=== PATIENT | male | born 1945 | race Caucasian/White ===

== ENCOUNTER 2022-05-08 01:43 | Inpatient (IN) | payer MEDICARE, OTHER ==
[2022-05-08] VITALS (75 sets, daily range): BP systolic 62–247; BP diastolic 44–224
[~2022-05-08] VITALS: Ht 172.7 cm; Wt 83.0 kg
[2022-05-08] MEDS ORDERED: [UNRECOGNIZED DRUG - OTHER] (02:10)
[2022-05-08] MEDS ORDERED: GLIPIZIDE ER5 MG PO (02:12)
[2022-05-08] MEDS ORDERED: FOLIC ACID1 MG PO (02:12)
[2022-05-08] MEDS ORDERED: METFORMIN HCL1000 MG PO (02:13)
[2022-05-08] MEDS ORDERED: ZOCOR10 MG PO (02:13)
[2022-05-08] MEDS ORDERED: PROVENTIL HFA108 MCG (02:14)
[2022-05-08] MEDS ORDERED: BREO ELLIPTA1 INH (02:14)
[2022-05-08] MEDS ORDERED: IPRATROPIUM BROMIDE IN (02:15)
[2022-05-08 02:21] LABS: BASO% 0.1 % (0-3); HEMATOCRIT 45.7 % (39.0-50.0); HEMOGLOBIN 13.4 g/dl (14.0-18.0); IMMATURE GRANULOCYTES 2.8 % (0.0-5.0); LYMPH% 3.4 % (15-41); MEAN CELL VOLUME 114.5 fL CALC (80.0-100.0); MEAN CORPUSCULAR HGB 33.6 pG CALC (26.0-32.0); MEAN CORPUSCULAR HGB CONC 29.3 g/dL CAL (32.0-36.0); MONO% 3.5 % (2-13); NEUT# 19.27 thou/uL (1.82-7.42); NEUT% 90.2 % (42-76); RED BLOOD COUNT 3.99 mill/uL (4.70-6.10); RED CELL DISTRI WIDTH 13.8 % (11.5-15.5)
[2022-05-08 02:33] LABS: INTERNATIONAL NORMALIZED RATIO 1.1 RATIO (0.7-1.3); PROTHROMBIN TIME 10.8 SECONDS (9.0-12.5)
[2022-05-08 02:34] LABS: ALBUMIN 3.9 g/dL (3.2-5.0); ALKALINE PHOSPHATASE 100 u/l (38-126); ANION GAP 7 (6-22 (CALC)); BILIRUBIN, TOTAL 0.5 mg/dL (0.0-1.4); BUN 20 mg/dL (8-23); BUN/CREATININE RATIO 20 (12-20 (CALC)); CARBON DIOXIDE 38 mmol/l (22-30); CHLORIDE 99 mmol/l (95-108); GFR FOR AFR.AMER. > 60 ML/MIN (>=60 (CALC)); GFR OTHER RACES > 60 ML/MIN (>=60 (CALC)); POTASSIUM 5.1 mmol/l (3.5-5.1); SGOT/AST 22 u/l (19-48); SODIUM 139 mmol/l (137-146); TOTAL PROTEIN 7.9 g/dL (6.3-8.2)
[2022-05-09] VITALS (24 sets, daily range): BP systolic 91–282; BP diastolic 47–228
[2022-05-09 04:04] LABS: HEMATOCRIT 44.8 % (39.0-50.0); HEMOGLOBIN 13.1 g/dl (14.0-18.0); MEAN CELL VOLUME 115.8 fL CALC (80.0-100.0); MEAN CORPUSCULAR HGB 33.9 pG CALC (26.0-32.0); MEAN CORPUSCULAR HGB CONC 29.2 g/dL CAL (32.0-36.0); RED BLOOD COUNT 3.87 mill/uL (4.70-6.10); RED CELL DISTRI WIDTH 13.5 % (11.5-15.5)
[2022-05-09 04:19] LABS: ALBUMIN 3.7 g/dL (3.2-5.0); CREATININE 1.5 mg/dL (0.7-1.3); MAGNESIUM 3.1 mg/dL (1.6-2.3); TOTAL PROTEIN 7.6 g/dL (6.3-8.2)
[2022-05-09 04:20] LABS: BILIRUBIN, TOTAL 0.2 mg/dL (0.0-1.4); POTASSIUM 5.9 mmol/l (3.5-5.1)
[2022-05-10] VITALS (13 sets, daily range): BP systolic 99–156; BP diastolic 52–119
[2022-05-10 05:29] LABS: HEMOGLOBIN 11.4 g/dl (14.0-18.0); MEAN CELL VOLUME 113.5 fL CALC (80.0-100.0); MEAN CORPUSCULAR HGB 33.4 pG CALC (26.0-32.0); MEAN CORPUSCULAR HGB CONC 29.5 g/dL CAL (32.0-36.0); RED BLOOD COUNT 3.41 mill/uL (4.70-6.10); RED CELL DISTRI WIDTH 13.7 % (11.5-15.5)
[2022-05-10 05:45] LABS: HEMATOCRIT 38.7 % (39.0-50.0)
[2022-05-10 05:53] LABS: ALBUMIN 3.3 g/dL (3.2-5.0); ALKALINE PHOSPHATASE 79 u/l (38-126); BUN 50 mg/dL (8-23); BUN/CREATININE RATIO 41 (12-20 (CALC)); CHLORIDE 100 mmol/l (95-108); CREATININE 1.2 mg/dL (0.7-1.3); GFR FOR AFR.AMER. > 60 ML/MIN (>=60 (CALC)); GFR OTHER RACES 59 ML/MIN (>=60 (CALC)); POTASSIUM 4.8 mmol/l (3.5-5.1); SGOT/AST 22 u/l (19-48); SODIUM 140 mmol/l (137-146); TOTAL PROTEIN 6.7 g/dL (6.3-8.2)
[2022-05-10 06:00] LABS: ANION GAP 4 (6-22 (CALC)); CARBON DIOXIDE 41 mmol/l (22-30)
[2022-05-11 00:29] VITALS: BP 124/66
[2022-05-11 04:20] VITALS: BP 125/70
[2022-05-11 05:43] LABS: HEMATOCRIT 39.4 % (39.0-50.0); HEMOGLOBIN 11.4 g/dl (14.0-18.0); MEAN CELL VOLUME 115.2 fL CALC (80.0-100.0); MEAN CORPUSCULAR HGB 33.3 pG CALC (26.0-32.0); MEAN CORPUSCULAR HGB CONC 28.9 g/dL CAL (32.0-36.0); RED BLOOD COUNT 3.42 mill/uL (4.70-6.10); RED CELL DISTRI WIDTH 13.6 % (11.5-15.5)
[2022-05-11 06:02] LABS: ALBUMIN 3.3 g/dL (3.2-5.0); ALKALINE PHOSPHATASE 86 u/l (38-126); BUN 46 mg/dL (8-23); BUN/CREATININE RATIO 40 (12-20 (CALC)); CHLORIDE 99 mmol/l (95-108); CREATININE 1.1 mg/dL (0.7-1.3); GFR FOR AFR.AMER. > 60 ML/MIN (>=60 (CALC)); GFR OTHER RACES > 60 ML/MIN (>=60 (CALC)); MAGNESIUM 2.9 mg/dL (1.6-2.3); POTASSIUM 4.9 mmol/l (3.5-5.1); SGOT/AST 22 u/l (19-48); SODIUM 141 mmol/l (137-146); TOTAL PROTEIN 6.6 g/dL (6.3-8.2)
[2022-05-11 06:12] LABS: ANION GAP 3 (6-22 (CALC)); BILIRUBIN, TOTAL 0.1 mg/dL (0.0-1.4); CARBON DIOXIDE 44 mmol/l (22-30)
[2022-05-11 06:29] VITALS: BP 127/71
[2022-05-11] MEDS ORDERED: PREDNISONE10 MG PO (09:58)
[2022-05-11] MEDS ORDERED: LEVAQUIN750 M1 PO (09:59)
[2022-05-11 10:18] VITALS: BP 123/71
[2022-05-11 10:40] VITALS: BP 123/71
== END 2022-05-11 12:45 | disposition home health service (06) | DRG 190 ==
LOC: ED 01:43 → ED-I 02:20 → ED 02:20 → ED-I 03:29 → ED 04:14 → ICU 04:15 → MS2 05-10 10:27
PROVIDERS: Internal Medicine; ADMIT Internal Medicine; ATTEND Internal Medicine
PROC: 5A09457 Assistance with Respiratory Ventilation, 24-96 Consecutive Hours, Continuous Positive Airway Pressure (ICD-10-PCS; principal; 2022-05-08)
DX: J44.1 Chronic obstructive pulmonary disease with (acute) exacerbation (principal); J18.9 Pneumonia, unspecified organism; J96.21 Acute and chronic respiratory failure with hypoxia; J96.22 Acute and chronic respiratory failure with hypercapnia; J44.0 Chronic obstructive pulmonary disease with (acute) lower respiratory infection; E87.5 Hyperkalemia; E11.9 Type 2 diabetes mellitus without complications; F17.200 Nicotine dependence, unspecified, uncomplicated; Z79.84 Long term (current) use of oral hypoglycemic drugs; Z99.81 Dependence on supplemental oxygen; Z85.118 Personal history of other malignant neoplasm of bronchus and lung; Z92.3 Personal history of irradiation; Z92.21 Personal history of antineoplastic chemotherapy; Z20.822 Contact with and (suspected) exposure to COVID-19
CPT/HCPCS: J1650; J3475

== ENCOUNTER 2022-05-12 15:59 | Observation (INO) | payer MEDICARE, OTHER ==
[~2022-05-12] VITALS: Ht 172.7 cm; Wt 79.8 kg
[~2022-05-12 15:59] MED LIST: BREO ELLIPTA1 INH; FOLIC ACID1 MG PO; GLIPIZIDE ER5 MG PO; IPRATROPIUM BROMIDE IN; LEVAQUIN750 M1 PO; METFORMIN HCL1000 MG PO; PREDNISONE10 MG PO; PROVENTIL HFA108 MCG; ZOCOR10 MG PO; [UNRECOGNIZED DRUG - OTHER]
[2022-05-12 16:36] LABS: BASO% 0.1 % (0-3); HEMATOCRIT 39.1 % (39.0-50.0); HEMOGLOBIN 11.4 g/dl (14.0-18.0); IMMATURE GRANULOCYTES 0.3 % (0.0-5.0); LYMPH% 2.4 % (15-41); MEAN CELL VOLUME 112.4 fL CALC (80.0-100.0); MEAN CORPUSCULAR HGB 32.8 pG CALC (26.0-32.0); MEAN CORPUSCULAR HGB CONC 29.2 g/dL CAL (32.0-36.0); MONO% 3.1 % (2-13); NEUT# 11.45 thou/uL (1.82-7.42); NEUT% 94.1 % (42-76); RED BLOOD COUNT 3.48 mill/uL (4.70-6.10); RED CELL DISTRI WIDTH 13.3 % (11.5-15.5)
[2022-05-12 16:52] LABS: ALBUMIN 3.3 g/dL (3.2-5.0); ALKALINE PHOSPHATASE 68 u/l (38-126); BUN 33 mg/dL (8-23); BUN/CREATININE RATIO 35 (12-20 (CALC)); CHLORIDE 98 mmol/l (95-108); CREATININE 0.9 mg/dL (0.7-1.3); GFR FOR AFR.AMER. > 60 ML/MIN (>=60 (CALC)); GFR OTHER RACES > 60 ML/MIN (>=60 (CALC)); POTASSIUM 4.2 mmol/l (3.5-5.1); SGOT/AST 26 u/l (19-48); SODIUM 139 mmol/l (137-146); TOTAL PROTEIN 6.6 g/dL (6.3-8.2)
[2022-05-12 17:13] LABS: ANION GAP 0 (6-22 (CALC)); BILIRUBIN, TOTAL 0.3 mg/dL (0.2-1.3); CARBON DIOXIDE 45 mmol/l (22-30)
[2022-05-12 19:52] VITALS: BP 127/69
[2022-05-12 19:55] VITALS: BP 127/69
[2022-05-12 23:36] VITALS: BP 135/65
[2022-05-13] VITALS: BP 135/65
[2022-05-13 04:00] VITALS: BP 129/78
[2022-05-13 04:47] LABS: ALKALINE PHOSPHATASE 70 u/l (38-126); BUN 29 mg/dL (8-23); BUN/CREATININE RATIO 30 (12-20 (CALC)); CHLORIDE 96 mmol/l (95-108); GFR FOR AFR.AMER. > 60 ML/MIN (>=60 (CALC)); GFR OTHER RACES > 60 ML/MIN (>=60 (CALC)); MAGNESIUM 2.3 mg/dL (1.6-2.3); SGOT/AST 24 u/l (19-48); SODIUM 137 mmol/l (137-146)
[2022-05-13 04:59] LABS: ANION GAP 0 (6-22 (CALC)); BILIRUBIN, TOTAL 0.5 mg/dL (0.2-1.3); CARBON DIOXIDE 46 mmol/l (22-30); POTASSIUM 5.1 mmol/l (3.5-5.1)
[2022-05-13 05:12] VITALS: BP 129/78
[2022-05-13 06:30] VITALS: BP 134/76
[2022-05-13 10:58] VITALS: BP 96/64
== END 2022-05-13 12:51 | disposition home health service (06) ==
LOC: ED 15:59 → ED-I 18:00 → ED 18:11 → MS2 18:12
PROVIDERS: Emergency Medicine; ADMIT Internal Medicine; ATTEND Internal Medicine
DX: J96.21 Acute and chronic respiratory failure with hypoxia (principal); J96.22 Acute and chronic respiratory failure with hypercapnia; J44.1 Chronic obstructive pulmonary disease with (acute) exacerbation; E11.649 Type 2 diabetes mellitus with hypoglycemia without coma; E78.00 Pure hypercholesterolemia, unspecified; F17.200 Nicotine dependence, unspecified, uncomplicated; T41.5X6A Underdosing of therapeutic gases, initial encounter; Z91.138 Patient's unintentional underdosing of medication regimen for other reason; Z99.81 Dependence on supplemental oxygen; Z79.84 Long term (current) use of oral hypoglycemic drugs
CPT/HCPCS: J1650

== ENCOUNTER 2022-08-19 07:43 | Emergency (ER) | payer MEDICARE, OTHER ==
[2022-08-19] VITALS (92 sets, daily range): BP systolic 70–142; BP diastolic 36–80
[~2022-08-19] VITALS: Ht 172.7 cm; Wt 75.7 kg
[2022-08-19 08:09] LABS: HEMATOCRIT 41.5 % (39.0-50.0); HEMOGLOBIN 12.1 g/dl (14.0-18.0); IMMATURE GRANULOCYTES 4.3 % (0.0-5.0); MEAN CELL VOLUME 114.3 fL CALC (80.0-100.0); MEAN CORPUSCULAR HGB 33.3 pG CALC (26.0-32.0); MEAN CORPUSCULAR HGB CONC 29.2 g/dL CAL (32.0-36.0); PLATELET COUNT 167 thou/uL (130-400); RED BLOOD COUNT 3.63 mill/uL (4.70-6.10); RED CELL DISTRI WIDTH 13.5 % (11.5-15.5)
[2022-08-19 08:34] LABS: URINE BILIRUBIN - DIPSTICK NEGATIVE (NEGATIVE); URINE BLOOD DIPSTICK NEGATIVE (NEGATIVE); URINE COLOR YELLOW; URINE GLUCOSE - DIPSTICK NEGATIVE (NEGATIVE); URINE KETONE NEGATIVE (NEGATIVE); URINE LEUK ESTERASE NEGATIVE (NEGATIVE); URINE PH 5.5 (4.5-8.0); URINE PROTEIN - DIPSTICK 100 mg/dL (NEG-TRACE); URINE SPECIFIC GRAVITY >=1.030; URINE UROBILINOGEN - DIPSTICK 0.2 E.U./dL (0.2)
[2022-08-19 08:35] LABS: BAND 5 % (0-8)
[2022-08-19 08:36] LABS: MANUAL DIFFERENTIAL YES
[2022-08-19 08:38] LABS: URINE NITRITE - DIPSTICK NEGATIVE (Negative)
[2022-08-19 08:39] LABS: URINE RBC 0-2 RBC/hpf (0-5); URINE WBC 0-2 WBC/hpf (0-5)
[2022-08-19 09:21] LABS: ALBUMIN 3.3 g/dL (3.2-5.0); ALKALINE PHOSPHATASE 96 u/l (38-126); BILIRUBIN, TOTAL 0.6 mg/dL (0.2-1.3); BUN 18 mg/dL (8-23); BUN/CREATININE RATIO 14 (12-20 (CALC)); CHLORIDE 104 mmol/l (95-108); CREATININE 1.3 mg/dL (0.7-1.3); GFR FOR AFR.AMER. > 60 ML/MIN (>=60 (CALC)); GFR OTHER RACES 54 ML/MIN (>=60 (CALC)); SODIUM 140 mmol/l (137-146); TOTAL PROTEIN 6.4 g/dL (6.3-8.2)
[2022-08-19 09:26] LABS: ANION GAP 14 (6-22 (CALC)); CARBON DIOXIDE 28 mmol/l (22-30); POTASSIUM 6.3 mmol/l (3.5-5.1); SGOT/AST 194 u/l (19-48)
[2022-08-19 13:31] LABS: ALBUMIN 2.8 g/dL (3.2-5.0); BILIRUBIN, TOTAL 0.5 mg/dL (0.2-1.3); CREATININE 1.4 mg/dL (0.7-1.3); POTASSIUM 4.6 mmol/l (3.5-5.1); TOTAL PROTEIN 5.4 g/dL (6.3-8.2)
== END 2022-08-19 13:56 | disposition short-term general hospital (02) ==
LOC: ED 07:43
PROVIDERS: Family Medicine
PROC: 0T9B70Z Drainage of Bladder with Drainage Device, Via Natural or Artificial Opening (ICD-10-PCS; principal; 2022-08-19)
PROC: 06HY33Z Insertion of Infusion Device into Lower Vein, Percutaneous Approach (ICD-10-PCS; 2022-08-19)
PROC: 3E043XZ Introduction of Vasopressor into Central Vein, Percutaneous Approach (ICD-10-PCS; 2022-08-19)
DX: A41.9 Sepsis, unspecified organism (principal); R65.20 Severe sepsis without septic shock; I46.9 Cardiac arrest, cause unspecified; E11.9 Type 2 diabetes mellitus without complications; Z79.84 Long term (current) use of oral hypoglycemic drugs; Z20.822 Contact with and (suspected) exposure to COVID-19